=== PATIENT | male | born 1980 | race Caucasian/White ===

== ENCOUNTER 2019-06-09 13:15 | Emergency (ER) | payer MEDICAID ==
[2019-06-09] MEDS ORDERED: PROPOFOL 200 MG/20 ML VIAL IVP STA (13:39)
[2019-06-09] MEDS ORDERED: KETAMINE 500 MG/10 ML VIAL IVP STA (13:39)
--- NOTE | 2019-06-09 13:41 | ED Physician Documentation ---
PD HPI SKIN - Stated complaint Stated Complaint: FACIAL SWELLING - Chief complaint Chief Complaint: Wound - History obtained from History obtained from: Patient - History of Present Illness Timing - onset: Yesterday (38yo male with hx of narcotic abuse, sober for over a year and on Suboxone for same developed a red pustular lesion on his face a few days ago. Subsequent to that he was seen at [facility] yesterday and had I/D without culture. He is on clindamycin. He is here because the abscess seems to have reaccumulated, he is unable to remove the packing on his own. He had a lot of pain yesterday and it was sounds like a very difficult time for him when they did the incision and drainage.) Review of Systems Ten Systems: 10 systems reviewed and negative Constitutional: reports: Fever, Chills. denies: Fatigue Ears: reports: Reviewed and negative Nose: reports: Reviewed and negative Throat: reports: Reviewed and negative PD PAST MEDICAL HISTORY - Past Medical History Cardiovascular: Pulmonary embolism - Past Surgical History Past Surgical History: Yes HEENT: Tonsil/Adenoidectomy - Present Medications Home Medications: Ambulatory Orders Medication Instructions Recorded Confirmed Alprazolam [Niravam] 2 mg PO 06/28/13 06/28/13 Buprenorphine HCl/Naloxone HCl 1 each SL 06/28/13 06/28/13 [Suboxone 8 mg-2 mg Tablet Sl] Bupropion HCl [Bupropion Xl] 150 mg PO 06/28/13 06/28/13 Doxepin [SINEquan] 25 mg PO QPM 06/28/13 06/28/13 Eszopiclone [Lunesta] 3 mg PO 06/28/13 06/28/13 Omeprazole [PriLOSEC] 20 mg PO DAILY 06/28/13 06/28/13 RX: Carisoprodol 350 mg PO 06/28/13 06/28/13 RX: Diazepam 5 mg PO 06/28/13 06/28/13 RX: Gabapentin 300 mg PO 06/28/13 06/28/13 Ibuprofen [Motrin] 800 mg PO Q8H PRN #20 tablet 06/09/19 diazePAM [Valium] 5 - 10 mg PO TID PRN #7 tablet 06/09/19 - Allergies Allergies/Adverse Reactions: Allergies Allergy/AdvReac Type Severity Reaction Status Date / Time escitalopram [From Lexapro] Allergy Unknown Verified 06/09/19 13:26 sertraline [From Zoloft] Allergy Unknown Verified 06/09/19 13:26 - Social History Does the pt smoke?: No Smoking Status: Never smoker Does the pt drink ETOH?: No Does the pt have substance abuse?: Yes PD ED PE NORMAL - Vitals Vital signs reviewed: Yes - General General: Alert and oriented X 3, No acute distress - HEENT HEENT: PERRL, EOMI, Other (A large facial abscess, it is focused on the left mandible.) - Neck Neck: Supple, no meningeal sign, No bony TTP - Cardiac Cardiac: RRR, No murmur - Respiratory Respiratory: No respiratory distress, Clear bilaterally - Abdomen Abdomen: Normal bowel sounds, Soft, Non tender - Derm Derm: Normal color, Warm and dry - Extremities Extremities: No deformity, No tenderness to palpate, No edema, No calf tenderness / cord - Neuro Neuro: Alert and oriented X 3, Normal speech - Psych Psych: Normal mood, Normal affect Results - Vitals Vitals: Vital Signs - 24 hr 06/09/19 06/09/19 06/09/19 13:19 14:48 14:53 Temperature 36.5 C Heart Rate 69 68 78 Respiratory 18 16 17 Rate Blood Pressure 119/82 H 119/70 119/70 O2 Saturation 100 100 99 06/09/19 06/09/19 06/09/19 14:57 15:04 15:09 Temperature Heart Rate 70 65 64 Respiratory 17 16 14 Rate Blood Pressure 152/89 H 148/95 H 148/95 H O2 Saturation 99 99 99 06/09/19 06/09/19 06/09/19 15:17 15:36 15:54 Temperature Heart Rate 70 57 L 67 Respiratory 16 13 20 Rate Blood Pressure 123/84 H 124/84 H O2 Saturation 100 100 Oxygen O2 Source Room air - Labs Labs: Microbiology 06/09/19 14:50 Wound Culture - Preliminary Face - Abscess Laboratory Tests 06/09/19 06/09/19 14:34 14:34 WBC 11.1 H RBC 4.10 L Hgb 12.9 L Hct 38.4 L MCV 93.7 MCH 31.5 H MCHC 33.6 RDW 12.1 Plt Count 208 MPV 9.9 Neut # (Auto) 7.8 H Lymph # (Auto) 1.8 Bureau # (Auto) 1.1 H Eos # (Auto) 0.3 Baso # (Auto) 0.1 Absolute Nucleated RBC 0.00 Nucleated RBC % 0.0 Sodium 138 Potassium 3.9 Chloride 99 L Carbon Dioxide 28 Anion Gap 11.0 BUN 14 Creatinine 1.2 Estimated GFR (MDRD) 67 L Glucose 108 H Calcium 9.4 Procedures - Abscess I&D (location) Face Preparation: Lidocaine 1%, Conscious sedation Incision: Incised with scalpel, Purulent drainage, Loculations broken, Packed, Culture obtained Other: Pt tolerated well, Other (After adequate sedation, small excision was made in her externally and then hemostats were used to probe the wound and deloculated. And then bluntly it was connected with the wound on the inside of the buccal mucosa. Now that there was a through and through hole, a Brielle drain was looped through that and tied on the outside.) - Procedural sedation Sedation prep: Informed consent, Time out completed, Last meal (days), PE performed, AHA 1 - healthy, IV O2 monitor, ET CO2 monitor, RT present Sedation medications: propofol (70mg IVP), ketamine (100mg IVP) Patient status during sedation: Unresponsive, Vitals remained stable, Maintained airway, Recovered uneventfully Sedation recovery: Recovered uneventfully Time in sedation (Minutes): 15 PD MEDICAL DECISION MAKING - ED course ED course: 38-year-old gentleman has failed outpatient treatment of a facial abscess, but I suspect that is more due to inadequate incision and drainage than anything else. I think the inadequate incision and drainage from his Description was probably due to poor tolerance of the procedure while awake yesterday and as such she was sedated for same and we were able to perform a more thorough incision and drainage. Departure - Departure Disposition: 01 Home, Self Care Clinical Impression: Abscess Condition: Good Record reviewed to determine appropriate education?: Yes Instructions: ED Abscess IandD Prescriptions: diazePAM [Valium] 5 - 10 mg PO TID PRN #7 tablet PRN Reason: Spasms Ibuprofen [Motrin] 800 mg PO Q8H PRN #20 tablet PRN Reason: PAIN &/OR FEVER Comments: Continue the current antibiotic (clindamycin) We are performing a wound culture, the results should be done in 48-72 hours. If antibiotic change is necessary we will call you. Return if worse in the meantime, especially if you develop increased pain, fevers, cannot keep down the medication. Follow-up with me Friday after 12 PM for packing removal and recheck. Discharge Date/Time: 06/09/19 16:07
[2019-06-09] MEDS ORDERED: BUFFERED LIDOCAINE 10 ML SYRINGE SUBQ STA (14:32)
[2019-06-09 14:45] LABS: BASOPHILS # (AUTO) 0.1 10^3/uL (0.0-0.1); BASOPHILS % (AUTO) 0.5 %; EOSINOPHILS # (AUTO) 0.3 10^3/uL (0.0-0.7); EOSINOPHILS % (AUTO) 2.8 %; HGB - HEMOGLOBIN 12.9 g/dL (14.0-18.0); LYMPHOCYTES # (AUTO) 1.8 10^3/uL (1.5-3.5); LYMPHOCYTES % (AUTO) 16.4 %; MEAN CORPUSCULAR HEMOGLOBIN 31.5 pg (27.0-31.0); MEAN CORPUSCULAR HGB CONC 33.6 g/dL (32.0-36.0); MEAN CORPUSCULAR VOLUME 93.7 fL (80.0-94.0); MEAN PLATELET VOLUME 9.9 fL (7.4-11.4); MONOCYTES # (AUTO) 1.1 10^3/uL (0.0-1.0); NEUTROPHILS # (AUTO) 7.8 10^3/uL (1.5-6.6); NEUTROPHILS % (AUTO) 69.8 %; PLT - PLATELET COUNT 208 10^3/uL (130-450); RED CELL DISTRIBUTION WIDTH 12.1 % (12.0-15.0); WHITE BLOOD COUNT 11.1 x10^3/uL (4.8-10.8)
[2019-06-09 15:10] LABS: CALCIUM 9.4 mg/dL (8.5-10.3); CREATININE 1.2 mg/dL (0.6-1.2)
[2019-06-09] MEDS ORDERED: KETOROLAC 30 MG/ML VIAL IVP STA (15:16)
[2019-06-09] MEDS ORDERED: BUTALB/ACETAM/CAFF 50/325/40MG TABLET PO STA (15:16)
[2019-06-09] MEDS ORDERED: HYDROmorphone 1 MG/ML CARPUJECT IVP STA (15:45)
[2019-06-09] MEDS ORDERED: GABAPENTIN 100 MG CAPSULE PO STA (15:45)
[2019-06-09 15:55] VITALS: BP 124/84
== END 2019-06-09 16:07 | disposition home or self-care (01) ==
LOC: ED 13:15
DX: L02.01 Cutaneous abscess of face (principal)
CPT/HCPCS: 10060; 36415; 80048; 85025; 87070; 87181; 87205; 99152; 99283; 99284; A9270; J1170; 94770

== ENCOUNTER 2019-06-11 13:15 | Emergency (ER) | payer MEDICAID ==
[2019-06-11 13:30] VITALS: BP 127/86
[2019-06-11] MEDS ORDERED: BUTALB/ACETAM/CAFF 50/325/40MG TABLET PO STA (13:47)
--- NOTE | 2019-06-11 13:49 | ED Physician Documentation ---
PD NEWBY HEENT - Stated complaint Stated Complaint: MOUTH PX - Chief complaint Chief Complaint: Heent - History obtained from History obtained from: Patient - History of Present Illness Timing - onset: Other (38 years old gentleman returns as recommended by me for a wound check. We performed a incision and drainage under sedation 2 days ago in the department. He was on clindamycin already from a previous visit to another ER. Sequently his culture grew MRSA sensitive to clindamycin. Pain is still significant and he requests a prescription for Fioricet. Otherwise he is doing well with decreased drainage, swelling, no fevers.) Review of Systems Constitutional: denies: Fever, Chills Ears: denies: Loss of hearing, Ear pain Nose: denies: Rhinorrhea / runny nose, Congestion PD PAST MEDICAL HISTORY - Past Medical History Cardiovascular: Pulmonary embolism - Past Surgical History Past Surgical History: Yes HEENT: Tonsil/Adenoidectomy - Present Medications Home Medications: Ambulatory Orders Medication Instructions Recorded Confirmed Alprazolam [Niravam] 2 mg PO 06/28/13 06/28/13 Buprenorphine HCl/Naloxone HCl 1 each SL 06/28/13 06/28/13 [Suboxone 8 mg-2 mg Tablet Sl] Bupropion HCl [Bupropion Xl] 150 mg PO 06/28/13 06/28/13 Carisoprodol 350 mg PO 06/28/13 06/28/13 Diazepam 5 mg PO 06/28/13 06/28/13 Doxepin [SINEquan] 25 mg PO QPM 06/28/13 06/28/13 Eszopiclone [Lunesta] 3 mg PO 06/28/13 06/28/13 Gabapentin 300 mg PO 06/28/13 06/28/13 Omeprazole [PriLOSEC] 20 mg PO DAILY 06/28/13 06/28/13 Ibuprofen [Motrin] 800 mg PO Q8H PRN #20 tablet 06/09/19 diazePAM [Valium] 5 - 10 mg PO TID PRN #7 tablet 06/09/19 Butalbital/Aspirin/Caffeine 1 each PO Q4H PRN #15 capsule 06/11/19 [Fiorinal 50-325-40 mg Capsule] Chlorhexidine Gluconate [Hibiclens] 10 ml TP DAILY #1 bot 06/11/19 Chlorhexidine Gluconate [Peridex] 15 ml MM QID #300 ml 06/11/19 Clindamycin HCl [Clindamycin 300MG 300 mg PO Q6H #20 capsule 06/11/19 CAP] - Allergies Allergies/Adverse Reactions: Allergies Allergy/AdvReac Type Severity Reaction Status Date / Time escitalopram [From Lexapro] Allergy Unknown Verified 06/09/19 13:26 sertraline [From Zoloft] Allergy Unknown Verified 06/09/19 13:26 - Social History Does the pt smoke?: No Smoking Status: Never smoker Does the pt drink ETOH?: No Does the pt have substance abuse?: Yes PD ED PE NORMAL - Vitals Vital signs reviewed: Yes - General General: Alert and oriented X 3, No acute distress - HEENT HEENT: Other (Much improved swelling around the Brielle drain that is looped in place through the right cheek intraorally. There is still surrounding induration but no cellulitis, The Brielle was removed during exam.) - Neck Neck: Supple, no meningeal sign, No bony TTP - Neuro Neuro: Alert and oriented X 3, Normal speech Results - Vitals Vitals: Vital Signs - 24 hr 06/11/19 13:27 Temperature 36.8 C Heart Rate 67 Respiratory 18 Rate Blood Pressure 127/86 H O2 Saturation 100 Oxygen O2 Source Room air Departure - Departure Disposition: 01 Home, Self Care Clinical Impression: Abscess, MRSA (methicillin resistant staph aureus) culture positive Condition: Good Record reviewed to determine appropriate education?: Yes Instructions: ED Skin Infec MRSA Suspect Conf Prescriptions: Butalbital/Aspirin/Caffeine [Fiorinal 50-325-40 mg Capsule] 1 each PO Q4H PRN #15 capsule PRN Reason: Pain Chlorhexidine Gluconate [Peridex] 15 ml MM QID #300 ml Chlorhexidine Gluconate [Hibiclens] 10 ml TP DAILY #1 bot Clindamycin HCl [Clindamycin 300MG CAP] 300 mg PO Q6H #20 capsule Comments: As discussed we are extending out the clindamycin for a total of 15 days on top of the prescription you were given in [place]. Return if the facial swelling worsens, or if you worsen generally or develop fevers.
== END 2019-06-11 14:12 | disposition home or self-care (01) ==
LOC: ED 13:15
DX: K12.2 Cellulitis and abscess of mouth (principal); B95.62 Methicillin resistant Staphylococcus aureus infection as the cause of diseases classified elsewhere
CPT/HCPCS: 99283; A9270

== ENCOUNTER 2019-11-17 14:16 | Emergency (ER) | payer MEDICAID ==
[2019-11-17] MEDS ORDERED: KETOROLAC 60 MG/2 ML VIAL IM STA (15:43)
--- NOTE | 2019-11-17 15:46 | ED Physician Documentation ---
History of Present Illness - Stated complaint Stated Complaint: POST OP RT FOOT PX - Chief complaint Chief Complaint: Ext Problem - History obtained from History obtained from: Patient - History of Present Illness Timing: Today - Additonal information Additional information: 39-year-old male who is on Suboxone has had a recent procedure on his right foot has had a bunionectomy with that they did a regional block with Ropivacaine. The ropivacaine was in a catheter into the side of his leg above his knee and this was a continuous infusion that is run out this morning. The patient stated the entire time he has not had any issues with pain is very happy with the way that this worked. He now has significant pain and he knows he is not able to take any narcotics because he is on the Suboxone. He has had improvement in his pain with both Valium and Fioricet. Review of Systems Constitutional: denies: Fever Nose: denies: Congestion Throat: denies: Sore throat Cardiac: denies: Chest pain / pressure, Palpitations Respiratory: denies: Dyspnea, Cough GI: denies: Abdominal Pain, Nausea, Vomiting : denies: Dysuria PD PAST MEDICAL HISTORY - Past Medical History Past Medical History: Yes Cardiovascular: Pulmonary embolism Respiratory: None Endocrine/Autoimmune: None GI: None : None Psych: None Musculoskeletal: Other Derm: None - Past Surgical History Past Surgical History: Yes HEENT: Tonsil/Adenoidectomy - Present Medications Home Medications: Ambulatory Orders Medication Instructions Recorded Confirmed Alprazolam [Niravam] 2 mg PO 06/28/13 06/28/13 Buprenorphine HCl/Naloxone HCl 1 each SL 06/28/13 06/28/13 [Suboxone 8 mg-2 mg Tablet Sl] Bupropion HCl [Bupropion Xl] 150 mg PO 06/28/13 06/28/13 Carisoprodol 350 mg PO 06/28/13 06/28/13 Diazepam 5 mg PO 06/28/13 06/28/13 Doxepin [SINEquan] 25 mg PO QPM 06/28/13 06/28/13 Eszopiclone [Lunesta] 3 mg PO 06/28/13 06/28/13 Gabapentin 300 mg PO 06/28/13 06/28/13 Omeprazole [PriLOSEC] 20 mg PO DAILY 06/28/13 06/28/13 Ibuprofen [Motrin] 800 mg PO Q8H PRN #20 tablet 06/09/19 diazePAM [Valium] 5 - 10 mg PO TID PRN #7 tablet 06/09/19 Butalbital/Aspirin/Caffeine 1 each PO Q4H PRN #15 capsule 06/11/19 [Fiorinal 50-325-40 mg Capsule] Chlorhexidine Gluconate [Hibiclens] 10 ml TP DAILY #1 bot 06/11/19 Chlorhexidine Gluconate [Peridex] 15 ml MM QID #300 ml 06/11/19 Clindamycin HCl [Clindamycin 300MG 300 mg PO Q6H #20 capsule 06/11/19 CAP] Butalbital/Aspirin/Caffeine 1 each PO Q4HR PRN #15 capsule 11/17/19 [Fiorinal 50-325-40 mg Capsule] diazePAM [Diazepam] 5 - 10 mg PO Q8HR PRN #15 tablet 11/17/19 - Allergies Allergies/Adverse Reactions: Allergies Allergy/AdvReac Type Severity Reaction Status Date / Time escitalopram [From Lexapro] Allergy Unknown Verified 11/17/19 14:41 sertraline [From Zoloft] Allergy Unknown Verified 11/17/19 14:41 - Social History Does the pt smoke?: No Smoking Status: Never smoker Does the pt drink ETOH?: No Does the pt have substance abuse?: Yes - Immunizations Immunizations are current?: Yes - POLST Patient has POLST: No PD ED PE NORMAL - Vitals Vital signs reviewed: Yes (tachy and hypertensive ) - General General: Alert and oriented X 3, No acute distress, Well developed/nourished - HEENT HEENT: Atraumatic, PERRL, EOMI - Respiratory Respiratory: No respiratory distress - Derm Derm: Normal color, Warm and dry, No rash - Extremities Extremities: Other (The right foot is in a post op dressing and a walking boot. There is a tiny catheter into the lateral aspect of the thigh just at the knee without inflamation or drainage or swelling ) - Neuro Neuro: Alert and oriented X 3, traffic and transport planner 2-12 intact, No motor deficit, No sensory deficit, Normal speech Eye Opening: Spontaneous Motor: Obeys Commands Verbal: Oriented GCS Score: 15 - Psych Psych: Normal mood, Normal affect Results - Vitals Vitals: Vital Signs - 24 hr 11/17/19 14:33 Temperature 36.8 C Heart Rate 105 H Respiratory 16 Rate Blood Pressure 128/106 H O2 Saturation 97 Oxygen O2 Source Room air PD MEDICAL DECISION MAKING - ED course Complexity details: reviewed old records, considered differential, d/w patient ED course: 39-year-old male with postoperative foot pain has had a recent ropivacaine block that is now worn off his catheter is removed and he is administered Toradol 60 mg IM we will feel prescription for Valium and Fioricet. Patient's surgeon and primary care doctor are not available today. Departure - Departure Disposition: 01 Home, Self Care Clinical Impression: Post-op pain Condition: Stable Instructions: ED Post Op Pain Follow-Up: Ketan Acosta DPM [Physician No Access] - Prescriptions: Butalbital/Aspirin/Caffeine [Fiorinal 50-325-40 mg Capsule] 1 each PO Q4HR PRN #15 capsule PRN Reason: Pain Or Fever > 38c (100.4f) diazePAM [Diazepam] 5 - 10 mg PO Q8HR PRN #15 tablet PRN Reason: Pain
[2019-11-17 16:07] VITALS: BP 133/84
== END 2019-11-17 16:11 | disposition home or self-care (01) ==
LOC: ED 14:16
DX: G89.18 Other acute postprocedural pain (principal)
CPT/HCPCS: 96372; 99283

== ENCOUNTER 2023-09-14 12:27 | Emergency (ER) | payer MEDICAID ==
[2023-09-14 12:41] VITALS: BP 148/80; O2SAT 100
[2023-09-14] MEDS ORDERED: diazePAM 5 MG TABLET PO STA (12:51)
--- NOTE | 2023-09-14 12:53 | ED Physician Documentation ---
History of Present Illness - Stated complaint Stated Complaint: ANXOUS/WEIRD TASTE,SMELL - Chief complaint Chief Complaint: General - History obtained from History obtained from: Patient - Additonal information Additional information: He has chronic anxiety and has not slept he says in the last 2 weeks. This was despite taking usual tizanidine and Seroquel. To this short course of Ambien was added by his PCP. No SI or HI. PD PAST MEDICAL HISTORY - Past Medical History Past Medical History: Yes Cardiovascular: None, Pulmonary embolism Respiratory: None Neuro: None Endocrine/Autoimmune: None GI: None : None HEENT: None Psych: None Musculoskeletal: Other Derm: None - Past Surgical History Past Surgical History: Yes HEENT: Tonsil/Adenoidectomy - Present Medications Home Medications: Ambulatory Orders Medication Instructions Recorded Confirmed Alprazolam [Niravam] 2 mg PO 06/28/13 06/28/13 Buprenorphine HCl/Naloxone HCl 1 each SL 06/28/13 06/28/13 [Suboxone 8 mg-2 mg Tablet Sl] Bupropion HCl [Bupropion Xl] 150 mg PO 06/28/13 06/28/13 Carisoprodol 350 mg PO 06/28/13 06/28/13 Diazepam 5 mg PO 06/28/13 06/28/13 Doxepin [SINEquan] 25 mg PO QPM 06/28/13 06/28/13 Eszopiclone [Lunesta] 3 mg PO 06/28/13 06/28/13 Gabapentin 300 mg PO 06/28/13 06/28/13 Omeprazole [PriLOSEC] 20 mg PO DAILY 06/28/13 06/28/13 Ibuprofen [Motrin] 800 mg PO Q8H PRN #20 tablet 06/09/19 diazePAM [Valium] 5 - 10 mg PO TID PRN #7 tablet 06/09/19 Butalbital/Aspirin/Caffeine 1 each PO Q4H PRN #15 capsule 06/11/19 [Fiorinal 50-325-40 mg Capsule] Chlorhexidine Gluconate [Hibiclens] 10 ml TP DAILY #1 bot 06/11/19 Chlorhexidine Gluconate [Peridex] 15 ml MM QID #300 ml 06/11/19 Clindamycin HCl [Clindamycin 300MG 300 mg PO Q6H #20 capsule 06/11/19 CAP] Butalbital/Aspirin/Caffeine 1 each PO Q4HR PRN #15 capsule 11/17/19 [Fiorinal 50-325-40 mg Capsule] diazePAM [Diazepam] 5 - 10 mg PO Q8HR PRN #15 tablet 11/17/19 diazePAM [Valium] 10 mg PO QPM #7 tab 09/14/23 - Allergies Allergies/Adverse Reactions: Allergies Allergy/AdvReac Type Severity Reaction Status Date / Time escitalopram [From Lexapro] Allergy Unknown Verified 09/14/23 12:30 sertraline [From Zoloft] Allergy Unknown Verified 09/14/23 12:30 - Social History Does the pt smoke?: No Smoking Status: Never smoker Does the pt drink ETOH?: No Does the pt have substance abuse?: Yes - Immunizations Immunizations are current?: Yes - POLST Patient has POLST: No PD ED PE NORMAL - General General: Alert and oriented X 3, No acute distress, Other (Appears anxious) - HEENT HEENT: PERRL - Neuro Neuro: Alert and oriented X 3, Normal speech Results - Vitals Vitals: Vital Signs - 24 hr 09/14/23 12:30 Temperature 36.5 C Heart Rate 72 Respiratory 18 Rate Blood Pressure 148/80 H O2 Saturation 100 Oxygen O2 Source Room air PD Medical Decision Making - ED course ED course: 43-year-old gentleman with exacerbation of chronic anxiety and would like a short prescription for Valium for same. RECORDS MANAGEMENT ASSOCIATE reviewed and he was forthcoming with prior/recent prescriptions. Departure - Departure Disposition: 01 Home, Self Care Clinical Impression: Anxiety Condition: Good Record reviewed to determine appropriate education?: Yes Instructions: ED Panic Attack Prescriptions: diazePAM [Valium] 10 mg PO QPM #7 tab Comments: I sent your prescription electronically to [facility] in [place] . As discussed, I recommend the following nonpharmacological measures: 1. Reestablish with a psychiatrist for medication management 2. Exercise at least 30 minutes a day, preferably outdoors in nature. 3. Consider meditative exercises as well. Call your doctor to arrange a follow-up appointment, make the next available appointment. In the interim, return anytime if worse or if new symptoms develop. Forms: PCP List
== END 2023-09-14 13:08 | disposition home or self-care (01) ==
LOC: ED 12:27
DX: F41.9 Anxiety disorder, unspecified (principal); Z79.899 Other long term (current) drug therapy
CPT/HCPCS: 99282; 99283; A9270

== ENCOUNTER 2023-09-25 11:48 | Emergency (ER) | payer MEDICAID ==
--- NOTE | 2023-09-25 16:23 | ED Physician Documentation ---
PD HPI SEIZURE - Stated complaint Stated Complaint: ANXIETY,POSS SZ - Chief complaint Chief Complaint: Neuro - History obtained from History obtained from: Patient - History of Present Illness Timing - onset: Today Witnessed: Witnessed (he states family members witnessed brief seizure activity today. He did not fall nor have injury. Had first seizure witnessed on 09/23 and states seem at [facility] (?) ER. with labs/CT. No Rx given as first time. Referred to Neurology and has appt in 10 days from now but had another seizure today.) Number of seizures: Single Description of seizure activity: Generalized Injury during seizure: None Contributing factors: Head injury (history of significant CHI/concussion as teeneager. Was told at risk of future seizures from it. Had not had any until few days ago.). No: Substance abuse, EtOH withdrawal Recently seen: Emergency Dept Review of Systems Constitutional: denies: Fever, Chills Nose: denies: Rhinorrhea / runny nose, Congestion Throat: denies: Sore throat Respiratory: denies: Cough Neurologic: reports: Headache. denies: Focal weakness, Numbness, Altered mental status PD PAST MEDICAL HISTORY - Past Medical History Cardiovascular: None, Pulmonary embolism Respiratory: None Neuro: None Endocrine/Autoimmune: None GI: None : None HEENT: None Psych: None, Anxiety Musculoskeletal: Other Derm: None - Past Surgical History Past Surgical History: Yes HEENT: Tonsil/Adenoidectomy - Present Medications Home Medications: Ambulatory Orders Medication Instructions Recorded Confirmed Buprenorphine HCl/Naloxone HCl 1 each SL DAILY 06/28/13 09/25/23 [Suboxone 8 mg-2 mg Tablet Sl] QUEtiapine [SEROquel] 25 mg PO QPM 09/14/23 09/14/23 Zolpidem Tartrate [Ambien] 10 mg PO HS 09/14/23 09/14/23 diazePAM [Valium] 10 mg PO QPM #7 tab 09/14/23 tiZANidine [Zanaflex] 4 mg PO HS PRN 09/14/23 09/14/23 PHENobarbitaL [Phenobarbital] 30 mg PO BID #40 tablet 09/25/23 - Allergies Allergies/Adverse Reactions: Allergies Allergy/AdvReac Type Severity Reaction Status Date / Time escitalopram [From Lexapro] Allergy Unknown Verified 09/25/23 12:30 sertraline [From Zoloft] Allergy Unknown Verified 09/25/23 12:30 - Social History Does the pt smoke?: No Smoking Status: Never smoker Does the pt drink ETOH?: No Does the pt have substance abuse?: Yes - Immunizations Immunizations are current?: Yes - POLST Patient has POLST: No PD ED PE NORMAL - Vitals Vital signs reviewed: Yes - General General: Alert and oriented X 3, No acute distress (not appearing in pain but is appearing very anxious. No tremoring. ), Well developed/nourished - HEENT HEENT: Atraumatic, PERRL, EOMI, Pharynx benign (no oral lesions. ) - Cardiac Cardiac: RRR, No murmur - Respiratory Respiratory: Clear bilaterally - Abdomen Abdomen: Soft, Non tender - Derm Derm: Normal color, Warm and dry - Neuro Neuro: Alert and oriented X 3, No motor deficit, Normal speech Results - Vitals Vitals: Oxygen O2 Source Room air PD Medical Decision Making - ED course Complexity details: reviewed old records (MAURILIO states to avoid opiates and describes anxiety meds Rx of diazepam. Rx suboxone currently on pain contract.), reviewed results (I ordered labs to see lytes/ sugar, etc. but lab unable to get some after 3 attempts. I feel it is okay to not have labs rather than trying further attempts. Pt is okay with this. ), considered differential (apparent witnessed new onset seizures. Pt states he had researched med online and discussed with his mother who is anurse. They thought phenobarb good choice. I told pt most common from Neuro is Keppra, but I do agree Pheno camron would be good for both sz reduction and also anxiety symptoms.), d/w patient ED course: reported new onset seizures and has neurology appt in 10 days. Second seizure today so wanting to start AED. He states he/mother came up with phenobarb for seizure and anxiety. I told him Keppra is commonly used but would not help with anxiety too. He had been on Zolpidem for sleep in past but not recent, so could help with that as well. I did not feel the med to be unreasonable, for short term, but that Neurologist may likely choose other. 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 I did not get records from other hospital, but went with pt description. Departure - Departure Disposition: 01 Home, Self Care Clinical Impression: New onset seizure, Anxiety Condition: Stable Record reviewed to determine appropriate education?: Yes Follow-Up: DIANNE MILLAN [Primary Care Provider] - Prescriptions: PHENobarbitaL [Phenobarbital] 30 mg PO BID #40 tablet Comments: Start the phenobarbital at 30 mg daily for several days. See how sedate you are feeling with this. It may be enough of a dose to keep from having seizures. It can be increased to twice daily if needed. Follow-up with your primary care regarding further prescriptions or medications for this. The goal is to reduce recurrent seizures as well as help with anxiety. Subsequently when you get the neurology consult/referral, they may be more likely to go with a primary seizure medicine and treat anxiety separately, such as Keppra for seizures. At this point it is reasonable to go with the phenobarbital as you had discussed with your primary care. I sent your prescription to [facility] in [place]. I would stop on any gabapentin. Stay well-hydrated. Tylenol if needed for pains. Follow-up with your primary care. Forms: PCP List Discharge Date/Time: 09/25/23 17:09
[2023-09-25] MEDS ORDERED: PHENobarbitaL 32.4 MG TABLET PO STA (16:51)
[2023-09-25 17:10] VITALS: BP 146/92; O2SAT 98
== END 2023-09-25 17:09 | disposition home or self-care (01) ==
LOC: ED 11:48
DX: R56.9 Unspecified convulsions (principal); F41.9 Anxiety disorder, unspecified
CPT/HCPCS: 99283; 99284; A9270; 80053; 83690; 85025

== ENCOUNTER 2023-10-03 08:32 | Outpatient (CLI) | payer MEDICAID ==
[2023-10-03 16:11] LABS: ALBUMIN 5.1 g/dL (3.2-5.5); CHOL/HDL RATIO 3.7 (<5.0); CHOLESTEROL 196 mg/dL; HDL CHOLESTEROL 53 mg/dL; LDL CHOLESTEROL,CALCULATED 119 mg/dL; LDL/HDL RATIO 2.2 (<3.6); MAGNESIUM 1.9 mg/dL (1.7-2.3); TRIGLYCERIDES 119 mg/dL (48-352); VLDL CHOLESTEROL 24 mg/dL
[2023-10-03 16:13] LABS: POTASSIUM 4.6 mmol/L (3.5-4.5)
[2023-10-03 16:14] LABS: ALBUMIN/GLOBULIN RATIO 1.9 (1.0-2.2); ALKALINE PHOSPHATASE 105 IU/L (42-121); ALT ALANINE AMINOTRANSFERASE 18 IU/L (10-60); AST ASPARTATE AMINOTRANSFERASE 28 IU/L (10-42); BILIRUBIN,TOTAL 0.4 mg/dL (0.2-1.0); BUN - BLOOD UREA NITROGEN 13 mg/dL (6-20); CALCIUM 9.9 mg/dL (8.5-10.3); CARBON DIOXIDE - CO2 22 mmol/L (21-32); CHLORIDE 103 mmol/L (101-111); CREATININE 1.1 mg/dL (0.6-1.3); GFR - MDRD 72 (>89); GLUCOSE 87 mg/dL (74-104); SODIUM 138 mmol/L (135-145); TOTAL PROTEIN 7.8 g/dL (6.4-8.9)
== END 2023-10-03 08:33 | disposition home or self-care (01) ==
LOC: LAB.S 08:32
PROVIDERS: ATTEND Registered Nurse
DX: G40.909 Epilepsy, unspecified, not intractable, without status epilepticus (principal); R00.0 Tachycardia, unspecified; G47.00 Insomnia, unspecified; F41.9 Anxiety disorder, unspecified
CPT/HCPCS: 36415; 80053; 80061; 82330; 82533; 82607; 82652; 82728; 83036; 83721; 83735; 84403; 84443; 85025; 86592

== ENCOUNTER 2023-10-21 11:13 | Emergency (ER) | payer MEDICAID ==
[2023-10-21 11:30] VITALS: O2SAT 100
--- NOTE | 2023-10-21 11:54 | ED Physician Documentation ---
PD HPI SEIZURE - Stated complaint Stated Complaint: SZ MANAGEMENT - Chief complaint Chief Complaint: Neuro - History obtained from History obtained from: Patient PD PAST MEDICAL HISTORY - Past Medical History Past Medical History: Yes Cardiovascular: Pulmonary embolism Respiratory: None Neuro: Seizure disorder Endocrine/Autoimmune: None GI: None : None HEENT: None Psych: Depression, Anxiety Musculoskeletal: Other Derm: None - Past Surgical History Past Surgical History: Yes HEENT: Tonsil/Adenoidectomy - Present Medications Home Medications: Ambulatory Orders Medication Instructions Recorded Confirmed Buprenorphine HCl/Naloxone HCl 1 each SL DAILY 06/28/13 10/21/23 [Suboxone 8 mg-2 mg Tablet Sl] QUEtiapine [SEROquel] 25 mg PO QPM 09/14/23 10/21/23 tiZANidine [Zanaflex] 4 mg PO HS PRN 09/14/23 10/21/23 PHENobarbitaL [Phenobarbital] 30 mg PO BID #40 tablet 09/25/23 10/21/23 Gabapentin [Neurontin] 800 mg PO TID 10/21/23 10/21/23 Levetiracetam [Keppra] 500 mg PO BID 10/21/23 10/21/23 PHENobarbitaL [Phenobarbital] 1 tab PO BID #60 tablet 10/21/23 PHENobarbitaL [Phenobarbital] 32.4 mg PO BID #60 tablet 10/21/23 - Allergies Allergies/Adverse Reactions: Allergies Allergy/AdvReac Type Severity Reaction Status Date / Time escitalopram [From Lexapro] Allergy Unknown Verified 10/21/23 11:23 sertraline [From Zoloft] Allergy Unknown Verified 10/21/23 11:23 - Social History Does the pt smoke?: No Smoking Status: Never smoker Does the pt drink ETOH?: No Does the pt have substance abuse?: No - Immunizations Immunizations are current?: Yes - POLST Patient has POLST: No Results - Vitals Vitals: Vital Signs - 24 hr 10/21/23 10/21/23 11:23 14:04 Temperature 36.9 C 36.8 C Heart Rate 85 82 Respiratory 18 16 Rate Blood Pressure 143/79 H 130/80 O2 Saturation 100 100 Oxygen O2 Source Room air PD Medical Decision Making - ED course Complexity details: reviewed old records (pharmacy fill history), considered differential, d/w patient ED course: Pt requesting continued Rx for Phenobarb as he is going out of town with family adn then returning and other events. He was seen by PCP and Rx Keppra to change from Phenobarb to that for seizures new onset in past couple of months. I did see his usual meds were Gabapentin, Quietipine, previously Ambien for sleep. Recent Clonazepam from walk in clinic (short term Rx for insomnia). Also prior ER visit with Pehnobarb Rx by me. I pointedly asked if he was only wanting Rx for seizure meds or trying to concurrently or hidden agenda desire to treat anxiety/sleep with the phenobarbital. He assured me he is willing to change to the Keppra, just wanted to do it not while out of town. Seemed sincere about it. I willR x him pehnobarb for a month as he states he getss back in town Nov 26. l suggest he can start tapering the phenobarb week prior to return, down to once daily and start the Keppra once daily at that time. Then to every other day for a week and go to the 500 BId with the Keppra. The Phenobarb has long enough half life to self taper from the every other day that not likely to need to go to every 3rd/etc day. But to follow up with PCp when returns. I did discuss with him that he would be unlikely to get further refills of the phenobarb after this. Rx to [facility], who subsequently called back and said they did not have in stock and would take 3-5 days for it, so to send Rx to [facility] and they will direct pt there. Departure - Departure Disposition: 01 Home, Self Care Clinical Impression: History of seizures, Anxiety Condition: Stable Follow-Up: DIANNE MILLAN [Primary Care Provider] - Prescriptions: PHENobarbitaL [Phenobarbital] 32.4 mg PO BID #60 tablet PHENobarbitaL [Phenobarbital] 1 tab PO BID #60 tablet Comments: It is not unreasonable to continue the phenobarbital as you are out of town and until more settled when you can start tapering and transition over to the Keppra. I prescribed your phenobarb to continue to twice a day for the next 3 weeks and then you can taper down to once daily as you start the Keppra once daily. After a week decrease the phenobarb to every other day and increase the Keppra to the full twice daily. Follow-up with your primary care at that point when you are back in town. Continue your other usual medicines. Forms: PCP List Discharge Date/Time: 10/21/23 14:04
[2023-10-21] MEDS ORDERED: PHENobarbitaL 32.4 MG TABLET PO STA (13:03)
[2023-10-21 14:10] VITALS: BP 130/80
== END 2023-10-21 14:04 | disposition home or self-care (01) ==
LOC: ED 11:13
DX: G40.909 Epilepsy, unspecified, not intractable, without status epilepticus (principal); F41.9 Anxiety disorder, unspecified
CPT/HCPCS: 99282; 99283; A9270

== ENCOUNTER 2023-12-24 21:55 | Outpatient (CLI) | payer MEDICAID | END 2023-12-24 21:56 | disposition critical access hospital (66) | LOC: EMS 21:55 | DX: R41.82 Altered mental status, unspecified (principal); R46.4 Slowness and poor responsiveness; R56.9 Unspecified convulsions | CPT/HCPCS: A0425; A0429; A0999 ==

== ENCOUNTER 2023-12-24 22:30 | Emergency (ER) | payer MEDICAID ==
--- NOTE | 2023-12-24 22:31 | ED Physician Documentation ---
History of Present Illness - Stated complaint Stated Complaint: FALL/AMS - History obtained from History obtained from: Patient, EMS - Additonal information Additional information: BIBA. HPI from patient, EMS. Patient lives with parents who heard "thud" (per EMS) c/w someone falling and hitting the floor. Patient's father immediately went to check on patient, encountered patient confused as he descended stairs. Patient was confused on EMS arrival but mental status has improved to baseline en route to ED. EMS notes drug "paraphernalia" was on scene including mushrooms although not clear if patient was taking these. They also note that patient had been crushing up his wellbutrin and snorting it, which patient readily admits to. FSBS 98 for EMS. PMHx reportedly includes seizures, and patient tells me he thinks he had a seizure tonight. However, he also says he distinctly remembers falling to the ground; he says he fell and struck his head on the floor. he c/o generalized headache as well as feeling anxious. He strongly denies SI, HI, AH/VH. Review of Systems Cardiac: reports: Reviewed and negative Respiratory: reports: Reviewed and negative GI: reports: Reviewed and negative Musculoskeletal: reports: Reviewed and negative Neurologic: reports: Confused, Headache, Head injury. denies: Generalized weakness, Focal weakness, Numbness PD PAST MEDICAL HISTORY - Past Medical History Cardiovascular: Pulmonary embolism Respiratory: None Neuro: Seizure disorder Endocrine/Autoimmune: None GI: None : None HEENT: None Psych: Depression, Anxiety Musculoskeletal: Other Derm: None - Past Surgical History Past Surgical History: Yes HEENT: Tonsil/Adenoidectomy - Present Medications Home Medications: Ambulatory Orders Medication Instructions Recorded Confirmed QUEtiapine [SEROquel] 25 mg PO QPM 09/14/23 12/24/23 tiZANidine [Zanaflex] 4 mg PO HS PRN 09/14/23 12/24/23 Gabapentin [Neurontin] 800 mg PO TID 10/21/23 12/24/23 Alprazolam [Xanax] 1 tab PO DAILY 12/24/23 12/24/23 Buprenorphine HCl/Naloxone HCl 1 film SL DAILY 12/24/23 12/24/23 [Suboxone 8 mg-2 mg Sl Film] buPROPion [Wellbutrin Xl] 2 tab PO DAILY 12/24/23 12/24/23 - Allergies Allergies/Adverse Reactions: Allergies Allergy/AdvReac Type Severity Reaction Status Date / Time escitalopram [From Lexapro] Allergy Unknown Verified 12/24/23 22:45 sertraline [From Zoloft] Allergy Unknown Verified 12/24/23 22:45 - Social History Does the pt smoke?: No Smoking Status: Never smoker Does the pt drink ETOH?: No Does the pt have substance abuse?: No - Immunizations Immunizations are current?: Yes - POLST Patient has POLST: No PD ED PE NORMAL - Vitals Vital signs reviewed: Yes - General General: Alert and oriented X 3, No acute distress, Well developed/nourished - HEENT HEENT: Atraumatic, PERRL, EOMI, Moist mucous membranes - Neck Neck: Supple, no meningeal sign, No bony TTP - Cardiac Cardiac: RRR, No murmur, No gallop, No rub - Respiratory Respiratory: No respiratory distress, Clear bilaterally - Abdomen Abdomen: Soft, Non tender - Derm Derm: Normal color, Warm and dry - Neuro Neuro: Alert and oriented X 3, industrial methods consultant 2-12 intact, No motor deficit, No sensory deficit, Normal speech Eye Opening: Spontaneous Motor: Obeys Commands Verbal: Oriented GCS Score: 15 Results - Vitals Vitals: Oxygen O2 Source Room air - Labs Labs: Laboratory Tests 12/24/23 23:07 Urine Color YELLOW Urine Clarity CLEAR Urine pH 7.0 Ur Specific [place] <=1.005 Urine Protein NEGATIVE Urine Glucose (UA) NEGATIVE Urine Ketones NEGATIVE Urine Occult Blood NEGATIVE Urine Nitrite NEGATIVE Urine Bilirubin NEGATIVE Urine Urobilinogen 0.2 (NORMAL) Ur Leukocyte Esterase NEGATIVE Ur Microscopic Review NOT INDICATED Urine Culture Comments NOT INDICATED Urine Opiates Screen NEGATIVE Ur Buprenorphine Scrn POSITIVE H Ur Oxycodone Screen NEGATIVE Urine Methadone Screen NEGATIVE Ur Barbiturates Screen NEGATIVE Ur Tricyclics Screen NEGATIVE Ur Phencyclidine Scrn NEGATIVE Ur Amphetamine Screen NEGATIVE U Methamphetamines Scrn POSITIVE H U Benzodiazepines Scrn POSITIVE H Urine Cocaine Screen NEGATIVE U Cannabinoids Screen NEGATIVE Ur Drug Screen Comment CUTOFF CONC BELOW: PD Medical Decision Making - ED course Complexity details: reviewed results, re-evaluated patient, considered differential, d/w patient ED course: UDS positive for methamphetamine, benzodiazepines, buprenorphine. UA normal. RN unable to obtain blood, likely due to h/o IVDU. I asked patient what he is taking for seizures. He says alprazolam is the only medication prescribed for his seizures. I note that on previous [facility] ED visits, there was mention in the charting about keppra being prescribed and phenobarbital. When I ask who has prescribed the phenobarbital, he says it was prescribed from this ED. In further discussion, it seems he is indicating that he has only received phenobarbital prescriptions from this ED and not from an outpatient practitioner. When I ask about the mention in one of the ED notes about keppra, patient says "I never took it". When I ask why, he says "it didn't work". I then ask him how he figures it didn't work if he never took it, he pauses and eventually says "I don't know". He reiterates same answer when I repeat the same question. I then turned to the diagnosis of seizures. He cannot recall the name of his neurologist nor where they practice. I ask him if he has ever had an EEG and he says he has not (I describe the test to him); he says "no one is doing any testing". I ask how he could've been told he had seizures if no testing (particularly EEG) had never been performed and he again answers "I don't know." As for nubia's event, seizure seems unlikely, as he was walking down steps immediately after family went to check on him after they heard a sound s/o patient falling to the ground. Lack of post-ictal phase (beyond simple confusion) would be inconsistent with GTC seizure. I recommended [facility], given his description of severe headache after hitting his head nubia. ED RN will also try again to obtain blood for testing. He requests "something for the anxiety" and I offered atarax. Patient tells me ativan is what he takes for anxiety and insists on having ativan and not atarax. He says atarax "never works" (per patient) and repeatedly insists on ativan. On MAURILIO form, under "problem list", the first problem noted is patient currently being prescribed suboxone and has history of requesting controlled substances when presenting to ED (fioricet, alprazolam). I told patient I would not order ativan for him and would like him to try the atarax if he is having anxiety. He refuses and signs AMA, leaving before blood tests and CT could be undertaken. Departure - Departure Disposition: 07 Against Medical Advice Clinical Impression: Altered mental status Qualifiers: Altered mental status type: unspecified Qualified Code(s): R41.82 - Altered mental status, unspecified Head injury Qualifiers: Encounter type: initial encounter Qualified Code(s): S09.90XA - Unspecified injury of head, initial encounter Condition: Good Forms: PCP List Discharge Date/Time: 12/25/23 01:43
[2023-12-24 23:24] LABS: BILIRUBIN,URINE NEGATIVE (NEGATIVE); GLUCOSE, URINE (UA) NEGATIVE (NEGATIVE); KETONES,URINE (UA) NEGATIVE (NEGATIVE); LEUKOCYTE ESTERASE, URINE NEGATIVE (NEGATIVE); NITRITE,URINE NEGATIVE (NEGATIVE); OCCULT BLOOD,URINE NEGATIVE (NEGATIVE); PROTEIN,URINE NEGATIVE (NEGATIVE); UROBILINOGEN,URINE 0.2 (NORMAL) E.U./dL (NORMAL)
[2023-12-24 23:27] LABS: CLARITY,URINE CLEAR (CLEAR)
[2023-12-24 23:48] LABS: AMPHETAMINE SCREEN,URINE NEGATIVE (NEGATIVE); BARBITURATE SCREEN,UR NEGATIVE (NEGATIVE); BENZODIAZEPINES SCREEN, URINE POSITIVE (NEGATIVE); BUPRENORPHINE SCREEN, URINE POSITIVE (NEGATIVE); COCAINE SCREEN URINE NEGATIVE (NEGATIVE); METHADONE SCREEN, URINE NEGATIVE (NEGATIVE); METHAMPHETAMINES SCREEN, URINE POSITIVE (NEGATIVE); OPIATE SCREEN, URINE NEGATIVE (NEGATIVE); OXYCODONE SCREEN, URINE NEGATIVE (NEGATIVE); THC CANNABINOID SCREEN, URINE NEGATIVE (NEGATIVE); TRICYCLIC ANTIDEPRESSANT,URINE NEGATIVE (NEGATIVE)
[2023-12-25 00:47] VITALS: BP 126/82; O2SAT 99
== END 2023-12-25 01:43 | disposition left against medical advice (07) ==
LOC: EDUNIT# → ED 22:30
DX: S09.90XA Unspecified injury of head, initial encounter (principal); W10.9XXA Fall (on) (from) unspecified stairs and steps, initial encounter; Y92.009 Unspecified place in unspecified non-institutional (private) residence as the place of occurrence of the external cause; R41.82 Altered mental status, unspecified; Z53.21 Procedure and treatment not carried out due to patient leaving prior to being seen by health care provider; G40.909 Epilepsy, unspecified, not intractable, without status epilepticus
CPT/HCPCS: 80053; 80143; 80179; 80306; 81001; 81003; 82077; 83690; 85025; 87086; 93005; 99283; 99284

== ENCOUNTER 2024-02-16 12:50 | Outpatient (CLI) | payer MEDICAID ==
--- NOTE | 2024-02-16 14:32 | XRAY Report ---
PROCEDURE: Lumbar Spine 2-3V INDICATIONS: LOWER BACK PAIN TECHNIQUE: 3 views of the lumbar spine were acquired. COMPARISON: None. FINDINGS: Bones: 5 [id number] vertebrae are present. There is normal bony alignment. No vertebral body compression fractures. No suspicious bony lesions. Soft tissues: Overlying bowel gas pattern is normal. No suspicious soft tissue calcifications. IMPRESSION: No compression deformities. Intervertebral disc height is preserved. Reviewed by: Maty Stallings MD on 02/16/2024 2:31 PM PDT Approved by: Maty Stallings MD on 02/16/2024 2:31 PM PDT Station ID: [id number]
== END 2024-02-16 12:51 | disposition home or self-care (01) ==
LOC: DI.S 12:50
PROVIDERS: ATTEND Family Medicine
DX: M54.50 Low back pain, unspecified (principal)

== ENCOUNTER 2024-06-20 09:23 | Outpatient (CLI) | payer MEDICAID | END 2024-06-20 23:59 | disposition EMS.NT | LOC: EMS 09:23 | DX: R56.9 Unspecified convulsions (principal); R40.0 Somnolence ==